=== PATIENT | male | born 1990 | race Caucasian/White ===

== ENCOUNTER 2016-09-19 06:32 | Day surgery (SDC) | payer OTHER ==
[~2016-09-19] VITALS: Ht 177.8 cm; Wt 80.7 kg
[2016-09-19] VITALS (8 sets, daily range): BP systolic 130–156; BP diastolic 79–113; PULSE 51–75; RESP 14–17; O2SAT 95–99
[~2016-09-19 06:32] MED LIST: ALBU8.5H2 INHALATION; CEFAZOLIN IV SCH; Lactated Ringer's 1,000 ML IV SCH; NPR500T PO
[2016-09-19] MEDS ORDERED: fentaNYL-PF 50 mCg/mL 2 mL Inj ONE (06:33)
[2016-09-19] MEDS ORDERED: Ropivacaine-PF 0.5% 30 mL Inj ONE (06:33)
[2016-09-19] MEDS ORDERED: Propofol 10,000 mCg/mL 20 mL Inj ONE (06:33)
[2016-09-19] MEDS ORDERED: Ondansetron 2 mg/mL 2 mL Inj ONE (06:33)
[2016-09-19] MEDS ORDERED: Lidocaine PF 1% 30 mL Inj ONE (06:33)
[2016-09-19] MEDS ORDERED: Succinylcholine Chloride 20 mg/mL 5 mL Inj ONE (06:33)
[2016-09-19] MEDS ORDERED: Lactated Ringer's 1,000 ML IV ONE (07:19)
[2016-09-19] MEDS ORDERED: Lactated Ringer's 500 ML IV PRN (08:12)
[2016-09-19] MEDS ORDERED: Lactated Ringer's 1,000 ML IV SCH (08:12)
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
[2016-09-19] MEDS ORDERED: hydrALAZINE 20 mg/mL Inj IVPUSH PRN (08:15)
[2016-09-19] MEDS ORDERED: HYDROmorphone 1 mg/mL Inj IVPUSH PRN (08:15)
[2016-09-19] MEDS ORDERED: Albuterol 2.5 mg/3 mL Inhalation Solution NEB PRN (08:15)
[2016-09-19] MEDS ORDERED: Labetalol 5 mg/mL 4 mL Inj IV PRN (08:15)
[2016-09-19] MEDS ORDERED: Phenylephrine 10,000 mCg/mL Inj IVPUSH PRN (08:15)
[2016-09-19] MEDS ORDERED: Ondansetron 2 mg/mL 2 mL Inj IVPUSH PRN (08:15)
[2016-09-19] MEDS ORDERED: MetoCLOpramide 5 mg/mL 2 mL Inj IVPUSH PRN (08:15)
[2016-09-19] MEDS ORDERED: EPHEDrine Sulfate 50 mg/mL Inj IVPUSH PRN (08:15)
[2016-09-19] MEDS ORDERED: Dexamethasone 4 mg/mL Inj IVPUSH PRN (08:15)
[2016-09-19] MEDS ORDERED: fentaNYL-PF 50 mCg/mL 2 mL Inj IVPUSH PRN (08:15)
[2016-09-19] MEDS ORDERED: Atropine 0.4 mg/mL Inj IVPUSH PRN (08:15)
[2016-09-19] MEDS ORDERED: Ketorolac 15 mg/mL Inj IVPUSH ONE (08:20)
[2016-09-19] MEDS ORDERED: HYDROcodone-APAP 5-325 mg Tablet PO PRN (08:20)
[2016-09-19] MEDS ORDERED: Clindamycin 600 mg/50 mL D5W Premix IV ONE (08:31)
[2016-09-19] MEDS ORDERED: Ropivacaine-PF 0.5% 30 mL Inj INJ ONE (08:58)
[2016-09-19] MEDS ORDERED: Clindamycin Inj 600 MG in IV Premix 1 EACH IV ONE (09:30)
--- NOTE | 2016-09-19 10:01 | PCM.ORTHOP ---
Orthopedic Operative Report Date of Service: Sep 19, 2016 Pre Operative Diagnosis left shoulder labral tear, loose body, acromioclavicular joint arthritis Post Operative Diagnosis left shoulder labral tear, loose body, acromioclavicular joint arthritis Procedure Left shoulder arthroscopy, anterior labral repair, subacromial decompression, distal clavicle excision/Edwin, loose body removal 12 x 7 mm Surgeon Surgeon: Donnell Arredondo MD Assistants:Roney Elizabeth Indication for Procedure left shoulder labral tear, loose body, acromioclavicular joint arthritis Findings Per dictation Details of Procedure ACTIVITY MANAGER SURGEON: During the operation, the services of physician political science research assistant were medically indicated and necessary to provide exposure of the operative site for the surgical procedure and to maintain the limb in a proper position to carry out the operation safely and efficiently. Without the qualified information assistant being present, it would have extended the operative procedure and made the procedure technically more difficult to perform. INDICATIONS: The patient is Kenny Antonio who is a 26-year-old male who has developed recurrent instability of the left shoulder. X-rays show the glenohumeral joint to be well maintained. The risks, benefits, and alternatives of surgery were discussed with the patient. The risks included but were not limited to infection, bleeding, damage to vessels and nerves, loss of motion, continued pain, complications due to anesthesia including myocardial infarction , stroke, , etc. The patient stated understanding of the nature of the surgical procedure and gave written and verbal consent to proceed. PROCEDURE: The patient was brought into the operating room and placed supine on the operating room table. A interscaline block was placed in the left shoulder for postoperative pain management, followed by the administration of general anesthesia. 600 milligrams of clindamycin was given after some local hives were noted with Ancef. The patient was then placed into the lateral decubitus position with the left side up. An axillary role was placed and the legs were padded as necessary to avoid pressure points. The patient was maintained in position with a beanbag evacuation device. A thorough examination of the left shoulder under anesthesia was performed. The patient had 150 degrees of forward elevation and 120 degrees of abduction. In 90 degrees of abduction the patient had 80 degrees of external rotation and 70 degrees of internal rotation. The left shoulder was then examined for stability. In neutral rotation there was 4/5 anterior instability. The left upper extremity was then prepped and draped in the usual fashion. The arm was suspended with a well-padded sleeve with eight pounds of balanced suspension in the arthroscopic position. A standard posterior portal was made inferior and medial to the posterior corner of the acromion. The incision was made only through skin. The trocar was advanced through the soft tissue with a blunt- tipped obturator. This was inserted into the glenohumeral joint without difficulty. The arthroscope was placed through the cannula and attached to the video monitor system. Inflow was achieved using the [employer] arthroscopic pump. The pressure was maintained at 35-40 mm of mercury throughout the entire procedure. Once the arthroscope confirmed visualization within the shoulder joint, it was advanced anteriorly into the rotator interval beneath the biceps tendon. A Wissinger maryjane was then used to create the anterior portal from inside -out. A second anterior stab wound incision was made only through skin and an anterior cannula was placed. A routine arthroscopic survey was begun Survey: Anterior inferior and anterior labral tear, 12 x 7 mm loose body in the subscapular recess, center of the head sits anteriorly. The subacromial space there was a 5 mm anterior inferior spur as well as the clavicle osteolysis and acromioclavicular joint arthritis The loose body was removed with a grasper. Complex surgical procedure: This was an extremely complex surgical procedure which took approximately 30-40% longer to complete than a standard repair. Without the use of a qualified pharmacy sales assistant, this surgical procedure would have taken even considerably longer and been unable to be performed arthroscopically Attention was then directly toward anterior labral repair. An anterior mid- glenoid portal was established with an outside in technique just above the subscapualris. With the arthroscope in the anterior superior viewing portal there was evidence of significant tearing of the anterior inferior labrum, Bankart lesion. Using a Liberator elevator and a blunt tipped [place] bar, a full thickness capsulolabral elevation was carried out down to the 6 o'clock position. The fibers of the subscapularis were well seen. The medial neck of the glenoid was well maintained and lightly abraded using the motorized shaver. The articular cartilage margin along with the anterior glenoid rim was lightly debrided using a curette. The firstanchor was placed in the 5:00 position using the curved orchardist for the suturetak anchor. The anchor was deployed and seated with excellent secure fixation. The suture from this anchor were then passed beginning with the 1st stitch at the 5:30 position and advancing the tissue from inferior to superior and from medial to lateral. This was a full thickness labral bite which restored an excellent buttress inferiorly. After the 1st labral stitch was placed, the humeral head was well centralized on the glenoid. The 2nd stitch from the anterior inferior most anchor was passed taking a plication bite as well as a full thickness labral bite creating a hospital corner repair with excellent secure fixation. The 2 anchors were sufficient in order to stabilize the humeral head as well as completely re-oppose the anterior inferior and anterior labrum. There appeared to be excellent confucianist of the anterior labral bumper. The drive-through sign was eliminated. The humeral head appeared to be well centralized, visualizing from both anterior superior and the posterior cannula. There was excellent confucianist of the bumper and no further evidence for instability. Abhishek procedure: Within the subacromial space there was marked fraying on the undersurface of the coracoacromial ligament consistent with impingement. A decision was thus made to proceed with arthroscopic subacromial decompression. Using an RF wand and a motorized shaver the coracoacromial ligament was recessed from the anterior acromial edge. An orientation trough was made along the lateral margin of the acromion, from the anterior corner back to the posterior margin of the AC joint. A sequential subacromial smoothing was carried out, removing approximately [default value] mm of bone corresponding to the preoperative radiographs. Once completed, the AC joint capsule was opened. There was inferior spurring as well as synovitis and arthritic changes at the AC joint and a decision was made to proceed with distal clavicle excision. Using a motorized bur working initially from posteriorly and then anteriorly, the outer 10 mm of the distal clavicle were excised. The arthroscope was then positioned anteriorly within the AC resection site confirming an excellent level of resection. Closure: The arm was then taken out of traction. The instability both in neutral rotation and in abduction external rotation was eliminated. The humeral head was well centralized. The arthroscope was then used to visualize the repair both from the anterior superior viewing portal and the posterior viewing portal which showed the humeral head to be well balanced with excellent and appropriate tissue tension. The glenohumeral joint was then copiously irrigated with an additional liter of lactated Ringers solution and excess fluid was drained. The arthroscopic portals were closed with #4-0 nylon and Steri-Strips. A dry sterile dressing was applied, followed by a neutral rotation sling. The patient was awakened in the Operating Room and transported to the Recovery Room in satisfactory condition. The patient appeared to tolerate the procedure well. There were no complications noted. Grafts, Implants: Implants-See Implant Record Complications There were no periprocedural complications identified. Condition Stable Anesthetic Administered: GA Catheters: None Output, Estimated Blood Loss: 5 Blood Admin during surgery: No Surgical Cast or Splint: Shoulder Immobilizer Surgical Specimen Removed: No Specimen sent to Pathology: No copies to: Donnell Arredondo MD, Christopher L MD Sep 19, 2016 10:01
--- NOTE | 2016-09-19 11:04 | PCM.ANEP1 ---
Post Anesthesia Phase 1 PACU Phase 1 Assessment Date of Service: Sep 19, 2016 Vital Signs Vital Signs Date Time Temp Pulse Resp B/P Pulse Ox O2 Delivery O2 Flow Rate FiO2 09/19/16 10:48 36.8 64 16 134/87 95 Room Air 09/19/16 10:35 69 16 145/79 96 Room Air 09/19/16 10:20 68 15 145/90 96 Room Air 09/19/16 10:15 70 17 152/92 95 Room Air 09/19/16 10:10 69 16 156/102 99 Simple Mask 10 09/19/16 10:05 36.4 75 17 150/113 99 Simple Mask 10 09/19/16 07:12 36 51 14 130/86 98 Room Air Anesthetic Administered: GA, Regional Block Level of Alertness: Awake, talking ECKERT's with Equal Strength: No Pain: No Nausea or Vomiting: No Oxygen Delivery: Simple Mask Lungs: Normal Air Movement Kris Cantu MD Sep 19, 2016 11:04
--- NOTE | 2016-09-19 11:08 | PCM.ANEP2 ---
Post Anesthesia Evaluation ASA/CMS Post Anesthesia Date of Service: Sep 19, 2016 VS in Patient's Normal Range?: Yes Resp Stable; Airway Patent?: Yes CV Function & Hydration Stable: Yes Mental Status Recovered?: Yes Pain control Satisfactory?: Yes N/V Control Satisfactory?: Yes Additional Comments Likely reaction in Ancef with localized hives in right arm above IV site once started. Ancef discontinued, clindamycin ordered for pre-operative antibiotics. Kris Cantu MD Sep 19, 2016 11:07
== END 2016-09-19 23:59 | disposition home or self-care (01) ==
LOC: SAS 06:32
PROVIDERS: ATTEND Orthopaedic Surgery
DX: M24.112 Other articular cartilage disorders, left shoulder (principal); M24.012 Loose body in left shoulder; M75.42 Impingement syndrome of left shoulder; M13.812 Other specified arthritis, left shoulder; J45.909 Unspecified asthma, uncomplicated; X50.0XXA Overexertion from strenuous movement or load, initial encounter; Y93.9 Activity, unspecified; Y92.9 Unspecified place or not applicable; Y99.0 Civilian activity done for income or pay; Z87.891 Personal history of nicotine dependence
CPT/HCPCS: 29806; 29824; 29826; 76942; C1713; J0330; J0690; J2175; J2250; J2405; J2795; J3010; J7120